=== PATIENT | male | born 1995 | race Caucasian/White ===

== ENCOUNTER 2021-10-22 04:16 | Emergency (ER) | payer OTHER ==
[~2021-10-22] VITALS: Ht 165.1 cm; Wt 95.2 kg
[2021-10-22 04:57] LABS: BASOPHILS ABSOLUTE AUTO 0.07 K/mm3 (0.00-0.23); BASOPHILS PERCENT AUTO 1 % (0-2); EOSINOPHILS ABSOLUTE AUTO 0.18 K/mm3 (0.00-0.68); EOSINOPHILS PERCENT AUTO 2 % (0-6); Hematocrit 46.7 % (37.0-53.0); Hemoglobin 15.8 g/dL (13.5-17.5); IMMATURE GRAN ABSOLUTE AUTO 0.06 K/mm3 (0.00-0.10); IMMATURE GRAN PERCENT AUTO 1 % (0-1); LYMPHOCYTES ABSOLUTE AUTO 3.23 K/mm3 (0.84-5.20); LYMPHOCYTES PERCENT AUTO 29 % (21-46); MONOCYTES ABSOLUTE AUTO 0.63 K/mm3 (0.16-1.47); MONOCYTES PERCENT AUTO 6 % (4-13); Mean Corpuscular HGB Conc 33.8 g/dL (31.5-36.5); Mean Corpuscular Volume 86 fL (80-100); Mean Platelet Volume 10.8 fL (9.1-12.4); NEUTROPHILS PERCENT AUTO 63 % (41-73); Platelet Count 324 K/mm3 (150-400); RDW Coefficient Variation 11.9 % (11.7-14.2); RDW Standard Deviation 36.7 fL (35.1-46.3); Red Blood Cell Count 5.45 M/mm3 (4.30-5.90); White Blood Cell Count 11.17 K/mm3 (4.00-11.30)
[2021-10-22 05:13] LABS: Alanine Aminotransfer (ALT/SGP 86 U/L (12-78); Albumin, Blood 4.4 g/dL (3.4-5.0); Albumin/Globulin Ratio 1.3 (0.8-1.8); Alk Phos 44 U/L (50-136); Anion Gap 4 mmol/L (6-16); Aspartate Aminotrans (AST/SGOT 32 U/L (12-37); Bilirubin, Total 1.1 mg/dL (0.1-1.0); Blood Urea Nitrogen 12 mg/dL (8-24); Bun/Creatinine Ratio 10.3 (12.0-20.0); CO2, Blood 28 mmol/L (21-32); Calcium, Blood 9.4 mg/dL (8.5-10.1); Chloride, Blood 105 mmol/L (98-108); Creatinine, Blood 1.17 mg/dL (0.60-1.20); Globulin, Blood 3.5 g/dL (2.2-4.0); Glomerular Filtration Rate >60 (60-); Glucose, Blood 99 mg/dL (70-99); Potassium, Blood 3.7 mmol/L (3.5-5.5); Sodium, Blood 137 mmol/L (136-145); Total Protein, Blood 7.9 g/dL (6.4-8.2)
[2021-10-22 06:57] LABS: Free Thyroxine 1.66 ng/dL (0.70-1.60); Thyroid Stimulating Hormone 3.61 uIU/mL (0.360-4.800)
== END 2021-10-22 07:57 | disposition home or self-care (01) ==
LOC: ER 04:16
PROVIDERS: Emergency Medicine; Student in an Organized Health Care Education/Training Program
DX: J02.9 Acute pharyngitis, unspecified (principal); Z88.0 Allergy status to penicillin
CPT/HCPCS: 36415; 70491; 80053; 84439; 84443; 85025; 93005; 93010; 96374; 99283-25; J1100; Q9967